=== PATIENT | male | born 1955 | race Caucasian/White ===

== ENCOUNTER 2017-02-28 20:21 | Emergency (ER) | payer BC ==
[~2017-02-28] VITALS: Ht 188 cm; Wt 92.5 kg
[~2017-02-28 20:21] MED LIST: LEVAQUIN750 MG PO; PROVENTIL,2.5 MG/0.5 AEROSOL
[2017-02-28 21:58] LABS: HEMATOCRIT 47.7 % (38.0-50.0); MCH 31.9 PG (29.0-34.0); MCHC 33.3 G/DL (30.0-36.0); MCV 95.8 FL (86-99); MEAN PLAT.VOLUME 9.2 uM^3 (9.0-12.4); PLATELET COUNT 228 K/uL (156-360); RBC DIS.WIDTH-CV 11.5 % (11.8-14.6); RBC DIS.WIDTH-SD 40.2 % (39-53); RED BLOOD COUNT 4.98 M/uL (4.00-5.50); WHITE BLOOD COUNT 6.7 K/uL (4.1-10.2)
[2017-02-28 22:11] LABS: CHLORIDE 107 mEq/L (99-109); POTASSIUM 3.8 mEq/L (3.7-5.4); SODIUM 142 mEq/L (136-147)
[2017-02-28 22:12] LABS: GLUCOSE 208 mg/dL (70-99)
[2017-02-28 22:14] LABS: ANION GAP 9 MEQ/L (2-14)
[2017-02-28 22:16] LABS: GFR ESTIMATE (CALCULATED) 51 mL/min/
[2017-02-28 22:17] LABS: UREA NITROGEN (BUN) 21 mg/dL (9-23)
[2017-02-28] MEDS ORDERED: FIORICET 50-301 EACH PO (22:42)
[2017-02-28 22:58] VITALS: BP 126/80
== END 2017-02-28 22:59 | disposition home or self-care (01) ==
LOC: EME 20:21
PROVIDERS: Nurse Practitioner Family
DX: E11.65 Type 2 diabetes mellitus with hyperglycemia (principal); N28.9 Disorder of kidney and ureter, unspecified; R51 Headache; T38.3X6A Underdosing of insulin and oral hypoglycemic [antidiabetic] drugs, initial encounter; Z91.128 Patient's intentional underdosing of medication regimen for other reason; I10 Essential (primary) hypertension; J44.9 Chronic obstructive pulmonary disease, unspecified; Z88.0 Allergy status to penicillin
CPT/HCPCS: 70450; 80048; 85027; 99281; 99283